=== PATIENT | female | born 1990 | race Caucasian/White ===

== ENCOUNTER 2017-03-09 16:00 | Emergency (ER) | payer OTHER ==
[~2017-03-09] VITALS: Ht 170.2 cm; Wt 135.0 kg
[~2017-03-09 16:00] MED LIST changes: -FLUO20CA35 PO; -MELO15TA4 PO
[2017-03-09 16:07] VITALS: TEMP 37; Ht 170.2 cm; Wt 135.0 kg
[2017-03-09] MEDS ORDERED: ONDANSETRON INJ 2 MG/ML 2 ML VIAL IV STA (16:21)
[2017-03-09] MEDS ORDERED: SODIUM CHLORIDE 0.9% 1000ML 1,000 ML IV STA (16:21)
[2017-03-09] MEDS ORDERED: OPTIRAY 320 IV PRN (16:30)
[2017-03-09 17:01] LABS: ISTAT CREATININE 0.7 mg/dl (0.6-1.3); ISTAT HEMOGLOBIN 12.9 g/dl (12.0-16.0); ISTAT IONIZED CALCIUM 1.24 mmol/l (1.12-1.32)
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
[2017-03-09] MEDS ORDERED: IBUPROFEN 600 MG TAB PO STA (18:16)
[2017-03-09 18:23] VITALS: BP 130/81; PULSE 88; O2SAT 99
[2017-03-09 18:24] LABS: BENZODIAZEPINE, URINE NEG (NEG); COCAINE,URINE NEG (NEG); PHENCYCLIDINE, URINE NEG (NEG)
[2017-03-09] MEDS ORDERED: FLUO20CA35 PO (18:43)
[2017-03-09] MEDS ORDERED: MELO15TA4 PO (18:43)
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
== END 2017-03-09 18:33 | disposition home or self-care (01) ==
LOC: EDBD 16:00 → C.EDC 16:01
DX: S20.219A Contusion of unspecified front wall of thorax, initial encounter (principal); S30.0XXA Contusion of lower back and pelvis, initial encounter; S30.1XXA Contusion of abdominal wall, initial encounter; V40.5XXA Car driver injured in collision with pedestrian or animal in traffic accident, initial encounter; Z80.9 Family history of malignant neoplasm, unspecified; Z83.3 Family history of diabetes mellitus; Z82.49 Family history of ischemic heart disease and other diseases of the circulatory system; F17.210 Nicotine dependence, cigarettes, uncomplicated; Z79.899 Other long term (current) drug therapy

== ENCOUNTER → 2017-03-09 | Outpatient (CLI) | payer OTHER ==
[~2017-03-09] MED LIST: CIPR-255 PO; FLUO20CA35 PO; GLC500 PO; IBUP-103 PO; LEVOIUD INT UTER; MELO15TA4 PO; OMEP20CA9 PO; ONDA4TAB9 PO; TYLOTC500 PO
== END | disposition home or self-care (01) ==
LOC: C.LAB 16:44
DX: Z04.8 Encounter for examination and observation for other specified reasons (principal)

== ENCOUNTER 2017-11-10 17:41 | Emergency (ER) | payer SELFPAY ==
[~2017-11-10] VITALS: Ht 170.2 cm; Wt 121.7 kg
[~2017-11-10 17:41] MED LIST changes: -CIPR-255 PO; -ONDA4TAB9 PO
[2017-11-10 18:13] VITALS: TEMP 36.8; Ht 170.2 cm; Wt 121.7 kg
[2017-11-10] MEDS ORDERED: FLUO20CA35 PO (18:43)
[2017-11-10] MEDS ORDERED: MELO15TA4 PO (18:43)
--- NOTE | 2017-11-10 19:23 | DIAGNOSTIC IMAGING REPORT ---
CHEST 2 VIEWS ROUTINE HISTORY: 27 years-old Female cough, febrile, congestion acute cough with fever COMPARISON: Chest CT 03/09/2017 TECHNIQUE: Frontal and lateral radiographs of the chest FINDINGS: Cardiomediastinal and hilar silhouettes are within normal limits. No pneumothorax, pleural effusion, focal airspace consolidation or overt pulmonary edema. Mild right hemidiaphragmatic elevation is unchanged. Bones of the chest appear grossly intact. ORIF hardware of the right humerus. IMPRESSION: No acute process. The above report was generated using voice recognition software. It may contain grammatical, syntax or spelling errors. Electronically signed by: Burak Wilcox M.D. 11/10/2017 7:21 PM Dictated Date/Time: 11/10/2017 7:20 PM
--- NOTE | 2017-11-10 19:45 | EMERGENCY ROOM VISIT NOTE ---
History First contact with patient: 18:41 Chief Complaint: FLU LIKE SX Stated Complaint: SORE THROAT, EARACHE, BODYACHES, GREEN SNOT History of Present Illness The patient is a 27 year old female who presents to the Emergency Room via private vehicle accompanied by male with complaints of "sore throat, earache, body aches, green soft". The patient states that for the past 3 days she has had rhinorrhea, congestion in the sinuses that now progresses to the chest with a green mucous production. Her temperature max over the past few days is 100.5 F. There is shortness of breath but no chest pain. She denies chance of . She did receive her influenza vaccination this year. Review of Systems A complete 6-point Review of Systems was discussed with the patient, with pertinent positives and negatives listed in the History of Present Illness. All remaining Review of Systems questions can be considered negative unless otherwise specified. Past Medical/Surgical History Humerus repair, tonsillectomy, bilateral cyst extraction, PCOS, bipolar Family History Cancer Diabetes mellitus Heart disease Hypertension Social History Smoking Status: Current Every Day Smoker Alcohol Use: none Drug Use: none Marital Status: single Occupation Status: unemployed Current/Historical Medications Scheduled Albuterol Hfa (Ventolin Hfa), 1-2 PUFFS INH Q6H Azithromycin (Zithromax), 1 PKT PO UD Fluoxetine (Prozac), 20 MG PO PT Levonorgestrel (Iud) (Mirena), 20 MCG INT UTER UD Meloxicam (Mobic), 15 MG PO DAILY Metformin HCl (Metformin HCl), 500 MG PO BID Omeprazole (Prilosec), 20 MG PO DAILY Scheduled PRN Acetaminophen (Tylenol), 1,000 MG PO Q6H PRN for Pain or Fever Ibuprofen Tab (Advil), 600 MG PO Q6H PRN for Pain or Fever Physical Exam Vital Signs Date Time Temp Pulse Resp B/P (MAP) Pulse Ox O2 Delivery O2 Flow Rate FiO2 11/10/17 20:10 87 20 142/99 96 11/10/17 18:13 36.8 86 20 147/102 98 Room Air Physical Exam VITAL SIGNS - Vital signs and nursing notes were reviewed. Stable. Hypertensive. GENERAL -27-year-old female appearing her stated age who is in no acute distress. She is nontoxic in appearance. Communicates well with provider and answers questions appropriately. SKIN - Without rashes. No petechial rashes. HEAD - NC/AT. EYES - PERRL with EOMI bilaterally. Sclera anicteric. No hyphema. EARS - No deformities of external structures noted on gross examination bilaterally. No pain elicited with palpation of the tragus bilaterally. External auditory canals without discharge or otorrhea. Tympanic membranes pearly stephenson without retraction or bulging. No fluid or purulent material visualized behind the TM. Handle of malleus, umbo, cone of light, pars tensa/ flaccid all easily visualized. NOSE - Midline and without cyanosis. No epistaxis or purulent drainage noted. MOUTH/OROPHARYNX - Without perioral cyanosis. Buccal mucosa pink and moist and without leukoplakia. Tongue midline with equal elevation of palate bilaterally. No tonsillar hypertrophy, erythema, or exudates noted. Tonsils surgically absent. NECK - Neck with FROM. Supple to palpation. Minimal left-sided cervical anterior lymphadenopathy noted. No nuchal rigidity. LUNGS - Chest wall symmetric without accessory muscle use, intercostals retractions, or central cyanosis. Normal vesicular breath sounds CTA B/L. No wheezes, rales, or rhonchi appreciated. CARDIAC - RRR with S1/S2. No murmur, rubs, or gallops appreciated. Medical Decision & Procedures ER Provider Diagnostic Interpretation: CHEST 2 VIEWS ROUTINE HISTORY: 27 years-old Female cough, febrile, congestion acute cough with fever COMPARISON: Chest CT 03/09/2017 TECHNIQUE: Frontal and lateral radiographs of the chest FINDINGS: Cardiomediastinal and hilar silhouettes are within normal limits. No pneumothorax, pleural effusion, focal airspace consolidation or overt pulmonary edema. Mild right hemidiaphragmatic elevation is unchanged. Bones of the chest appear grossly intact. ORIF hardware of the right humerus. IMPRESSION: No acute process. The above report was generated using voice recognition software. It may contain grammatical, syntax or spelling errors. Electronically signed by: Burak Wilcox M.D. 11/10/2017 7:21 PM Dictated Date/Time: 11/10/2017 7:20 PM Medications Administered Medications (Trade) Dose Ordered Sig/Yaritza Route Start Time Stop Time Status Last Admin Dose Admin Albuterol (Ventolin Hfa Inhaler) 1 puffs NOW STAT INH 11/10/17 19:55 11/10/17 19:56 DC 11/10/17 19:55 1 PUFFS Medical Decision Patient was seen and evaluated as above. She presents to us today with URI- like symptoms. Chest x-ray was obtained and found to be negative for acute process. Strep test was obtained without any negative. I suspect she is experiencing either the flu, or similar viral illness. She is nontoxic on exam. At this time I believe she is stable from patient management and we'll give her azithromycin that she is to take if she is feeling better after 7 days , as well as a Ventolin inhaler. She is to follow with her family doctor. She is to return with worsening. She was educated upon management, educated upon worrisome symptoms which to return, had questions answered prior to discharge, and was discharged home in good condition. In evaluation treatment this patient the following differential diagnoses were entertained: Viral upper respiratory tract infection, influenza, pneumonia, among others. Impression Primary Impression: Upper respiratory infection Departure Information Dispostion Home / Self-Care Condition GOOD Prescriptions Azithromycin (ZITHROMAX) 250 Mg Tab 1 PKT PO UD for 5 Days, #6 TAB Prov: Richard Johnson PA-C 11/10/17 Albuterol Hfa (VENTOLIN HFA) 200 Puffs/05665 Mcg Aers 1-2 PUFFS INH Q6H, #1 INHALER Prov: Richard Johnson PA-C 11/10/17 Referrals Elena Felix D.O. (PCP) Patient Instructions My [facility] Additional Instructions You were seen in the emergency Department for an upper respiratory tract infection. Chest x-ray shows no pneumonia. You may take the azithromycin if no better after day 7. Albuterol inhaler 1-2 puffs every 4-6 hours as needed for your cough. Please call your family doctor to schedule follow-up. Please return with any new/concerning symptoms.
[2017-11-10] MEDS ORDERED: ALBUTEROL HFA 8 GM INHALER INH STA (19:55)
[2017-11-10] MEDS ORDERED: AZIT-60 PO (19:55)
[2017-11-10] MEDS ORDERED: VNTHFA/IN INH (19:55)
[2017-11-10 20:10] VITALS: BP 142/99; PULSE 87; O2SAT 96
== END 2017-11-10 20:11 | disposition home or self-care (01) ==
LOC: C.EDB 17:42 → C.EDD 20:11
DX: J06.9 Acute upper respiratory infection, unspecified (principal); F31.9 Bipolar disorder, unspecified; Z80.9 Family history of malignant neoplasm, unspecified; Z83.3 Family history of diabetes mellitus; Z82.49 Family history of ischemic heart disease and other diseases of the circulatory system; F17.210 Nicotine dependence, cigarettes, uncomplicated; Z79.899 Other long term (current) drug therapy